=== PATIENT | male | born 2000 | race Two or more races ===

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

== ENCOUNTER 2021-03-11 23:54 | Emergency (ER) | payer MEDICAID, OTHER ==
[~2021-03-11] VITALS: Ht 195.6 cm; Wt 78.0 kg
[2021-03-11 23:55] VITALS: BP 127/82
--- NOTE | 2021-03-11 23:58 | NUR ---
TASK RN: PT BIBA IN CUSTODY C/O TASER DART STUCK IN RIGHT SIDE OF FOREHEAD. PT DENIES ANY PAIN. NO OTHER COMPLAINTS. PT SITTING UPRIGHT ON [facility] VSS. LAW ENFORCEMENT AT BEDSIDE. CALL LIGHT IN REACH. ERP DR. MARSH AT BEDSIDE
[2021-03-12] MEDS ORDERED: BACITRACIN ZINC OINT 500U/GM, 0.9 GM ONE
--- NOTE | 2021-03-12 00:28 | NUR ---
PT D/C WITH D/C SUMMARY IN CUSTODY OF [employer]ACH[employer]. PT AND LAW ENFORCEMENT DENY ANY OTHER NEEDS PERTAINING TO THIS VISIT. PT AMBULATES WITH [facility] GA[facility] TO AMBULANCE BAY FOR D/C TO [facility].
== END 2021-03-12 00:35 | disposition home or self-care (01) ==
LOC: ED 03-12 00:34
DX: S00.85XA Superficial foreign body of other part of head, initial encounter (principal); F17.210 Nicotine dependence, cigarettes, uncomplicated; X58.XXXA Exposure to other specified factors, initial encounter; Y93.89 Activity, other specified; Y92.410 Unspecified street and highway as the place of occurrence of the external cause; Y99.8 Other external cause status
CPT/HCPCS: 99284; 99406